=== PATIENT | male | born 1995 | race Caucasian/White ===

== ENCOUNTER → 2016-05-20 | Outpatient (CLI) | payer OTHER ==
--- NOTE | 2016-05-21 09:00 | PULMONARY FUNCTION TEST ---
CLINICAL DATA: A 20-year-old male with a height of 70 inches and a weight of [address] Garcia with a history of asthma. Spirometry pre-bronchodilator was performed. FINDINGS: Pre-bronchodilator spirometry is within normal limits. FVC was 133% of predicted. FEV1 was 112% of predicted. [id number] was 121% of predicted. IMPRESSION: Normal spirometry with no evidence of asthma or obstructive airways disease on current PFTs. MTDD
== END | disposition home or self-care (01) ==
LOC: C.RC 12:43
PROVIDERS: ATTEND Pediatrics
DX: Z87.09 Personal history of other diseases of the respiratory system (principal)